=== PATIENT | male | born 1970 | race Two or more races ===

== ENCOUNTER → 2020-07-25 | Emergency (ER) | payer OTHER ==
[~2020-07-25] VITALS: Ht 175.3 cm; Wt 91.2 kg
[~2020-07-25] MED LIST: CLONAZEPAM1 MG; LIPITOR40 M1 PO; PEPCID40 MG PO; PROZAC40 MG PO; SEROQUEL50 MG; WELLBUTRIN XL300 MG; ZOFRAN8 MG PO
== END | disposition home or self-care (01) ==
LOC: ER 01:24
DX: R10.13 Epigastric pain (principal)

== ENCOUNTER 2021-04-25 22:40 | Emergency (ER) | payer OTHER ==
[~2021-04-25] VITALS: Ht 177.8 cm; Wt 77.1 kg
[2021-04-26] MEDS ORDERED: PEPCID40 MG PO (04:48)
[2021-04-26] MEDS ORDERED: ZOFRAN8 MG PO (04:48)
== END 2021-04-26 05:05 | disposition home or self-care (01) ==
LOC: ER 22:40
DX: R10.13 Epigastric pain (principal)

== ENCOUNTER 2021-05-28 15:15 | Inpatient (IN) | payer OTHER ==
[~2021-05-28] VITALS: Ht 175.3 cm; Wt 88.5 kg
[2021-05-31] MEDS ORDERED: LIPITOR40 M1 PO (12:34)
[2021-05-31] MEDS ORDERED: WELLBUTRIN XL300 MG PO (12:35)
[2021-05-31] MEDS ORDERED: CLONAZEPAM1 MG PO (12:36)
[2021-05-31] MEDS ORDERED: PROZAC40 MG PO (12:37)
[2021-05-31] MEDS ORDERED: SEROQUEL50 MG PO (12:37)
[2021-05-31] MEDS ORDERED: PEPCID40 MG PO (12:42)
[2021-05-31] MEDS ORDERED: ZOFRAN8 MG PO (12:42)
[2021-05-31] MEDS ORDERED: TRAMADOL HCL50 MG PO (12:42)
[2021-05-31] MEDS ORDERED: LIDODERM1 EACH TOP (12:43)
[2021-05-31] MEDS ORDERED: Ferro-Plex CAPLET PO (12:43)
[2021-05-31] MEDS ORDERED: DECADRON4 MG PO (12:46)
== END 2021-05-31 13:49 | disposition home or self-care (01) | DRG 842 ==
LOC: MEDJ 15:15 → MEDI 16:36
PROVIDERS: ADMIT Internal Medicine Hematology & Oncology; ATTEND Internal Medicine Hematology & Oncology
PROC: 30233N1 Transfusion of Nonautologous Red Blood Cells into Peripheral Vein, Percutaneous Approach (ICD-10-PCS; principal; 2021-05-29)
PROC: 07DR3ZX Extraction of Iliac Bone Marrow, Percutaneous Approach, Diagnostic (ICD-10-PCS; 2021-05-30)
DX: C90.00 Multiple myeloma not having achieved remission (principal); D64.9 Anemia, unspecified; F41.8 Other specified anxiety disorders; D47.2 Monoclonal gammopathy

== ENCOUNTER 2021-06-24 14:28 | Emergency (ER) | payer OTHER ==
[~2021-06-24] VITALS: Ht 175.3 cm; Wt 85.7 kg
[~2021-06-24 14:28] MED LIST changes: +CLONAZEPAM1 MG PO; +DECADRON4 MG PO; +Ferro-Plex CAPLET PO; +LIDODERM1 EACH TOP; +SEROQUEL50 MG PO; +TRAMADOL HCL50 MG PO; +WELLBUTRIN XL300 MG PO
[2021-06-24] MEDS ORDERED: ULTRACET PO (14:49)
[2021-06-24] MEDS ORDERED: PERCOCET 5-3251 EACH PO (20:14)
== END 2021-06-24 20:50 | disposition home or self-care (01) ==
LOC: ER 14:28
DX: M54.6 Pain in thoracic spine (principal); M54.59 Other low back pain; R07.81 Pleurodynia

== ENCOUNTER 2021-07-02 12:06 | Emergency (ER) | payer OTHER ==
[~2021-07-02] VITALS: Ht 175.3 cm; Wt 86.2 kg
[~2021-07-02 12:06] MED LIST changes: +PERCOCET 5-3251 EACH PO; +ULTRACET PO
== END 2021-07-02 17:34 | disposition home or self-care (01) ==
LOC: ER 12:06
DX: K29.60 Other gastritis without bleeding (principal); C90.00 Multiple myeloma not having achieved remission; T40.415A Adverse effect of fentanyl or fentanyl analogs, initial encounter; T40.2X5A Adverse effect of other opioids, initial encounter; Y92.89 Other specified places as the place of occurrence of the external cause

== ENCOUNTER 2021-07-03 14:12 | Inpatient (IN) | payer OTHER ==
[2021-07-07] MEDS ORDERED: CLONAZEPAM1 MG PO (11:48)
[2021-07-07] MEDS ORDERED: PROZAC20 MG PO (11:49)
[2021-07-07] MEDS ORDERED: GABAPENTIN100 MG PO (11:50)
[2021-07-07] MEDS ORDERED: FAMOTIDINE20 MG PO (11:52)
[2021-07-07] MEDS ORDERED: Ferro-Plex CAPLET PO (11:53)
[2021-07-07] MEDS ORDERED: CALADRYL 1%-8%177 ML TOP (11:53)
[2021-07-07] MEDS ORDERED: FENTANYL1 EAC3 TD (11:54)
[2021-07-07] MEDS ORDERED: DOCUSATE SODIU100 MG PO (11:55)
[2021-07-07] MEDS ORDERED: DECADRON4 MG PO (11:56)
[2021-07-07] MEDS ORDERED: ZOFRAN8 MG PO (11:57)
== END 2021-07-07 12:51 | disposition home or self-care (01) | DRG 842 ==
LOC: SURH 14:12
PROVIDERS: ADMIT Internal Medicine Hematology & Oncology; ATTEND Internal Medicine Hematology & Oncology
PROC: 3E0F7SF Introduction of Other Gas into Respiratory Tract, Via Natural or Artificial Opening (ICD-10-PCS; principal; 2021-07-03)
DX: C90.00 Multiple myeloma not having achieved remission (principal); G89.3 Neoplasm related pain (acute) (chronic); E86.0 Dehydration; F43.20 Adjustment disorder, unspecified; F41.8 Other specified anxiety disorders; D63.0 Anemia in neoplastic disease; N18.30 Chronic kidney disease, stage 3 unspecified; M54.89 Other dorsalgia; M62.830 Muscle spasm of back; R07.81 Pleurodynia
CPT/HCPCS: 240

== ENCOUNTER 2021-07-23 09:45 | Inpatient (IN) | payer OTHER ==
[~2021-07-23] VITALS: Ht 175.3 cm; Wt 85.7 kg
[~2021-07-23 09:45] MED LIST changes: +CALADRYL 1%-8%177 ML TOP; +DOCUSATE SODIU100 MG PO; +FAMOTIDINE20 MG PO; +FENTANYL1 EAC3 TD; +GABAPENTIN100 MG PO; +PROZAC20 MG PO
[2021-07-26] MEDS ORDERED: ULTRACET PO (17:14)
== END 2021-07-26 17:27 | DRG 841 ==
LOC: ER 09:45 → MEDI 16:13
PROVIDERS: ADMIT Internal Medicine Hematology & Oncology; ATTEND Internal Medicine Hematology & Oncology
PROC: 8E0ZXY6 Isolation (ICD-10-PCS; principal; 2021-07-23)
PROC: 30233N1 Transfusion of Nonautologous Red Blood Cells into Peripheral Vein, Percutaneous Approach (ICD-10-PCS; 2021-07-23)
DX: C90.00 Multiple myeloma not having achieved remission (principal); E87.1 Hypo-osmolality and hyponatremia; E86.0 Dehydration; N18.31 Chronic kidney disease, stage 3a; D63.0 Anemia in neoplastic disease; E83.52 Hypercalcemia

== ENCOUNTER 2021-08-12 20:08 | Inpatient (IN) | payer OTHER ==
[~2021-08-12] VITALS: Ht 175.3 cm; Wt 84.4 kg
[2021-08-28] MEDS ORDERED: NORFLEX100MG PO (13:22)
[2021-08-28] MEDS ORDERED: AMITRIPTYLINE H25 MG PO (13:23)
[2021-08-28] MEDS ORDERED: NEURONTIN600 MG PO (13:24)
[2021-08-28] MEDS ORDERED: CLONAZEPAM1 MG PO (13:24)
[2021-08-28] MEDS ORDERED: PROZAC20 MG PO (13:24)
[2021-08-28] MEDS ORDERED: ULTRACET PO (13:25)
[2021-08-28] MEDS ORDERED: DOCUSATE SODIU100 MG PO (13:25)
[2021-08-28] MEDS ORDERED: FAMOTIDINE20 MG PO (13:26)
[2021-08-28] MEDS ORDERED: LIDODERM1 EACH TOP (13:26)
== END 2021-08-28 14:25 | disposition home or self-care (01) | DRG 841 ==
LOC: ER 20:08 → MEDJ 23:01
PROVIDERS: ADMIT Internal Medicine Hematology & Oncology; ATTEND Internal Medicine Hematology & Oncology
PROC: 30233N1 Transfusion of Nonautologous Red Blood Cells into Peripheral Vein, Percutaneous Approach (ICD-10-PCS; principal; 2021-08-13)
PROC: BR39ZZZ Magnetic Resonance Imaging (MRI) of Lumbar Spine (ICD-10-PCS; 2021-08-17)
DX: C90.00 Multiple myeloma not having achieved remission (principal); D84.821 Immunodeficiency due to drugs; C79.51 Secondary malignant neoplasm of bone; E86.0 Dehydration; Z20.822 Contact with and (suspected) exposure to COVID-19; Z79.899 Other long term (current) drug therapy; N18.30 Chronic kidney disease, stage 3 unspecified; E87.8 Other disorders of electrolyte and fluid balance, not elsewhere classified
CPT/HCPCS: 72148

== ENCOUNTER 2021-09-01 23:36 | Emergency (ER) | payer OTHER ==
[~2021-09-01] VITALS: Ht 175.3 cm; Wt 85.7 kg
[~2021-09-01 23:36] MED LIST changes: +AMITRIPTYLINE H25 MG PO; +NEURONTIN600 MG PO; +NORFLEX100MG PO
== END 2021-09-02 11:34 | disposition home or self-care (01) ==
LOC: ER 23:36
DX: K29.00 Acute gastritis without bleeding (principal); C90.00 Multiple myeloma not having achieved remission; C79.51 Secondary malignant neoplasm of bone

== ENCOUNTER 2021-09-04 21:48 | Inpatient (IN) | payer OTHER ==
[~2021-09-04] VITALS: Ht 175.3 cm; Wt 58.5 kg
--- NOTE | 2021-09-04 22:00 | NUR ---
SE REALIZA ADMINISTRACION DE MEDICAMENTOS POR ORDEN [place], SE REALIZAN MUESTRAS DE PALAK Y SE MANTIENE A PACIENTE EN OPBSERVACION POR CAMBIOS EN CONDICION Y CONTINUIDAD DE CHONG.
--- NOTE | 2021-09-04 22:02 | NUR ---
PTE SE RECIBE POR DOLOR EN LA ESPALDA BAJA PROBLEMA AL ORINAR MAREO Y VOMITOS REFIERE PARAMEDICO PTE Y FAMILIAR.
--- NOTE | 2021-09-05 08:10 | NUR ---
SE RECIBE PTE DEL TURNO ANTERIOR, ALERTA Y ORIENTADO EN CHER DENA ESFERAS, UBICADO EN CAMA NIVEL MAS BAJO, BREWSTER DE IDENTIFICACION Y BARANDAS ELEVADAS POR PRECAUCION. SE OBSERVA CON BUEN PATRON RESPIRATORIO Y PIEL TIBIA ALTACTO. IV PATENTE Y HALLEY DE EDEMA O ERITEMA CON DW5%-0.9% NSS @200ML/HR. PENDIENTE CONSULTA CON DR MADINA BRANCH. SE MANTIENE BAJO OBSERVACION.
[2021-09-11] MEDS ORDERED: INTESTINEX680 M1 PO (17:52)
[2021-09-11] MEDS ORDERED: FAMOTIDINE20 MG PO (17:52)
[2021-09-11] MEDS ORDERED: LOPERAMIDE2 MG PO (17:53)
[2021-09-11] MEDS ORDERED: PANTOPRAZOLE SO40 MG PO (17:53)
[2021-09-11] MEDS ORDERED: CARAFATE1 GM PO (17:54)
[2021-09-11] MEDS ORDERED: CIPRO500 MG PO (17:59)
[2021-09-11] MEDS ORDERED: METRONIDAZOLE500 MG PO (17:59)
== END 2021-09-11 19:00 | disposition home or self-care (01) | DRG 444 ==
LOC: ER 21:48 → SEC-K 09-05 11:18 → MEDI 09-05 16:21
PROVIDERS: ADMIT Internal Medicine Hematology & Oncology; ATTEND Internal Medicine Hematology & Oncology
PROC: 30233N1 Transfusion of Nonautologous Red Blood Cells into Peripheral Vein, Percutaneous Approach (ICD-10-PCS; principal; 2021-09-09)
DX: K80.00 Calculus of gallbladder with acute cholecystitis without obstruction (principal); A41.89 Other specified sepsis; C90.00 Multiple myeloma not having achieved remission; C79.51 Secondary malignant neoplasm of bone; K29.00 Acute gastritis without bleeding; E86.0 Dehydration; E87.8 Other disorders of electrolyte and fluid balance, not elsewhere classified; D63.0 Anemia in neoplastic disease; Z20.822 Contact with and (suspected) exposure to COVID-19; F43.23 Adjustment disorder with mixed anxiety and depressed mood; N18.30 Chronic kidney disease, stage 3 unspecified

== ENCOUNTER 2021-09-25 22:42 | Inpatient (IN) | payer OTHER ==
[~2021-09-25] VITALS: Ht 175.3 cm; Wt 85.7 kg
[~2021-09-25 22:42] MED LIST changes: +CARAFATE1 GM PO; +CIPRO500 MG PO; +INTESTINEX680 M1 PO; +LOPERAMIDE2 MG PO; +METRONIDAZOLE500 MG PO; +PANTOPRAZOLE SO40 MG PO
--- NOTE | 2021-09-25 23:16 | NUR ---
PACIENTE ALERTA Y ORIENTADO X3. REFIERE VENIR PORQUE HOY RECIBIO VILLELA QUIMIOTERAPIA EN LA MANANA Y LUEGO A LAS 1200PM COMENZO CON VOMITOS, DEBILIDAD EN EL CUERPO Y MAREOS. PACIENTE REFIERE CAMPBELL VOMITADO EN 6 OCASIONES. SE OBSERVA PACIENTE PALIDO. PACIENTE CON BP MANUAL 60/40MMHG Y PULSO EN 136/MIN. SE NOTIFICA A ALTHEA. DE TURNO Y SE UBICA EN AREA DE DOLOR DE PECHO. SE CONECTA A MONITOR CARDIACO Y OXIMETRIA DE PULSO. SE CANALIZA BAJO MEDIDAS ASEPTICAS. Y SE ADMINISTRA PUSH DE 0.9% NSS DE 250ML A BAJAR FULL DRIP ORDENADO POR . SE ELEVAN PIERNAS EN LA CAMA CON BARANDAS ELEVADAS. SE REALIZA EKG. SE ENTREGA PACVIENTE A MR. WILSON.
--- NOTE | 2021-09-26 07:32 | NUR ---
SE RECIBE PTE MASCULINO DE 50 YRS ALERTA CONCIETNE Y TRANQUILO. PTE EN AREA DE ISOLACION EN CAMA CON BARANDAS ELEVADA. PTE AL MOMENTO HALLEY DE DOLOR . SE LE RAMÓN S/V LA CUAL SE DOCUEMTA.. PTE CONSULTADO CON EL DR.MORALES IVY. SE MANTIENE BAJO OBSERVACION POR CAMBIOS EN VILLELA CONDCION.
[2021-10-01] MEDS ORDERED: HYOSCYAMINE0.125 M1 SL (09:02)
[2021-10-01] MEDS ORDERED: NEURONTIN600 MG PO (09:03)
[2021-10-01] MEDS ORDERED: PROZAC20 MG PO (09:03)
[2021-10-01] MEDS ORDERED: CLONAZEPAM1 MG PO (09:03)
[2021-10-01] MEDS ORDERED: ULTRACET PO (09:03)
[2021-10-01] MEDS ORDERED: CARAFATE1 GM PO (09:04)
[2021-10-01] MEDS ORDERED: ZINC SULFATE50 M1 PO (09:04)
[2021-10-01] MEDS ORDERED: INTESTINEX680 M1 PO (09:04)
[2021-10-01] MEDS ORDERED: FAMOTIDINE20 MG PO (09:04)
[2021-10-01] MEDS ORDERED: VITAMIN C500 M1 PO (09:05)
[2021-10-01] MEDS ORDERED: VITAMIN D3125 MC2 PO (09:05)
[2021-10-01] MEDS ORDERED: MELATONIN5 M2 PO (09:06)
== END 2021-10-01 09:57 | disposition home or self-care (01) | DRG 391 ==
LOC: ER 22:42 → MEDJ 09-26 16:49
PROVIDERS: ADMIT Internal Medicine Hematology & Oncology; ATTEND Internal Medicine Hematology & Oncology
PROC: 4A12X4Z Monitoring of Cardiac Electrical Activity, External Approach (ICD-10-PCS; principal; 2021-09-26)
PROC: 30233N1 Transfusion of Nonautologous Red Blood Cells into Peripheral Vein, Percutaneous Approach (ICD-10-PCS; 2021-09-28)
DX: K29.00 Acute gastritis without bleeding (principal); U07.1 COVID-19; K80.00 Calculus of gallbladder with acute cholecystitis without obstruction; C90.00 Multiple myeloma not having achieved remission; C79.51 Secondary malignant neoplasm of bone; D63.0 Anemia in neoplastic disease; R10.13 Epigastric pain; E86.0 Dehydration; E87.8 Other disorders of electrolyte and fluid balance, not elsewhere classified; E83.42 Hypomagnesemia; E83.39 Other disorders of phosphorus metabolism; G89.3 Neoplasm related pain (acute) (chronic)

== ENCOUNTER 2021-10-23 09:50 | Outpatient (CLI) | payer OTHER ==
[~2021-10-23 09:50] MED LIST changes: +HYOSCYAMINE0.125 M1 SL; +MELATONIN5 M2 PO; +VITAMIN C500 M1 PO; +VITAMIN D3125 MC2 PO; +ZINC SULFATE50 M1 PO
[2021-10-24] MEDS ORDERED: DEXAMETHASONE4 MG (08:45)
== END 2021-10-23 09:56 | disposition home or self-care (01) ==
LOC: RAD 09:50
PROVIDERS: ATTEND Internal Medicine Hematology & Oncology
DX: Z01.818 Encounter for other preprocedural examination (principal)

== ENCOUNTER 2021-10-23 12:54 | Inpatient (IN) | payer OTHER ==
[~2021-10-23] VITALS: Ht 175.3 cm; Wt 76.7 kg
[2021-10-24] MEDS ORDERED: DEXAMETHASONE4 MG (08:45)
[2021-11-01] MEDS ORDERED: NEURONTIN600 M1 PO (11:47)
[2021-11-01] MEDS ORDERED: CIPRO500 MG PO (11:48)
[2021-11-01] MEDS ORDERED: METRONIDAZOLE500 MG PO (11:49)
[2021-11-01] MEDS ORDERED: INTESTINEX680 M1 PO (11:52)
[2021-11-01] MEDS ORDERED: TOPROL XL25 M1 PO (11:53)
[2021-11-01] MEDS ORDERED: ULTRAM50 MG PO (11:56)
[2021-11-01] MEDS ORDERED: CLONAZEPAM1 MG PO (11:56)
== END 2021-11-01 12:19 | disposition home or self-care (01) | DRG 418 ==
LOC: ER 12:54 → MEDI 20:06
PROVIDERS: Surgery; ADMIT Internal Medicine; ATTEND Internal Medicine
PROC: 30233N1 Transfusion of Nonautologous Red Blood Cells into Peripheral Vein, Percutaneous Approach (ICD-10-PCS; 2021-10-27)
PROC: BW40ZZZ Ultrasonography of Abdomen (ICD-10-PCS; 2021-10-28)
PROC: 0FT44ZZ Resection of Gallbladder, Percutaneous Endoscopic Approach (ICD-10-PCS; principal; 2021-10-28 16:30)
DX: K80.00 Calculus of gallbladder with acute cholecystitis without obstruction (principal); C90.00 Multiple myeloma not having achieved remission; C79.51 Secondary malignant neoplasm of bone; K82.8 Other specified diseases of gallbladder; K29.00 Acute gastritis without bleeding; E86.0 Dehydration; D63.0 Anemia in neoplastic disease; E83.42 Hypomagnesemia; E88.09 Other disorders of plasma-protein metabolism, not elsewhere classified; N18.31 Chronic kidney disease, stage 3a; F43.23 Adjustment disorder with mixed anxiety and depressed mood; Z86.16 Personal history of COVID-19